=== PATIENT | male | born 1975 | race Two or more races ===

== ENCOUNTER 2017-08-08 09:40 | Emergency (ER) | payer MEDICAID ==
[2017-08-08 09:54] VITALS: BP 153/89
--- NOTE | 2017-08-08 10:09 | EDM.PDOC ---
ED HPI GENERAL MEDICAL PROBLEM - General Chief Complaint: ENT Problem Stated Complaint: [id number] PAIN FACE NUMBNESS Time Seen by Provider: 08/08/17 09:40 Source of Information: Reports: Patient, RN, RN Notes Reviewed History Limitations: Reports: No Limitations - History of Present Illness INITIAL COMMENTS - FREE TEXT/NARRATIVE: [place] is a 42 yo male who presents today due to pain in his left lower jaw. He relates that he broke a tooth two days ago and has had pain and swelling to his jaw since. He reports sensitivity to hot and cold liquids. Denies fever/ chills at home. He reports that he tried to get into a dentist but was unable to. Onset Date: 08/06/17 Quality: Reports: Ache, Sharp Severity: Severe Improves with: Reports: Medication (Has taken advil and tylenol with minimal relief. ) Associated Symptoms: Reports: No Other Symptoms Left Lower Feet Pain Score (Numeric/FACES): 8 - Related Data Allergies Allergy/AdvReac Type Severity Reaction Status Date / Time Unable to Assess Allergy Unverified 01/31/15 08:36 Home Meds: Home Meds . [No Known Home Meds] 08/08/17 [History] Past Medical History - Past Surgical History GI Surgical History: Reports: Appendectomy, Colon Social & Family History - Tobacco Use Smoking Status *Q: Current Status Unknown - Recreational Drug Use Recreational Drug Use: No ED ROS ENT - Review of Systems Review Of Systems: ROS reveals no pertinent complaints other than HPI. ED EXAM, ENT - Physical Exam Exam: See Below Exam Limited By: No Limitations General Appearance: Alert, WD/WN, No Apparent Distress Eye Exam: Bilateral Eye: PERRL Ears: Normal External Exam, Normal Canal, Hearing Grossly Normal, Normal TMs Nose: Normal Inspection, Normal Mucousa, No Blood Mouth/Throat: Normal Lips, Normal Oropharynx, Dental Abcess (Patient has broken tooth to left lower jaw swelling is present. ), Dental Pain Head: Atraumatic, Facial Swelling (To left lower jaw) Neck: Normal Inspection, Supple, Non-Tender, Full Range of Motion Respiratory/Chest: No Respiratory Distress, Lungs Clear, Normal Breath Sounds, No Accessory Muscle Use, Chest Non-Tender Cardiovascular: Normal Peripheral Pulses, Regular Rate, Rhythm, No Edema, No Gallop, No JVD, No Murmur, No Rub GI/Abdominal: Normal Bowel Sounds, Soft, Non-Tender, No Organomegaly, No Distention, No Abnormal Bruit, No Mass (Male) Exam: Deferred Rectal (Males) Exam: Deferred Back: Normal Inspection, Full Range of Motion Extremities: Normal Inspection, Normal Range of Motion, Non-Tender, No Pedal Edema, Normal Capillary Refill Neurological: Alert, Oriented, CN II-XII Intact, Normal Cognition, Normal Gait, Normal Reflexes, No Motor/Sensory Deficits Psychiatric: Normal Affect, Normal Mood Skin: Warm, Dry, Intact, Normal Color, No Rash Lymphatic: No Adenopathy ED ENT PROCEDURES - Additional/Other Procedure(s) Other (Free Text) Procedure(s): Dental block to left lower tooth #21 with Bupivican. Topical analgesic applied prior injection. Course - Vital Signs Last Recorded V/S: Last Vital Signs Temp 37.0 C 08/08/17 09:53 Pulse 88 08/08/17 09:53 Resp 16 08/08/17 09:53 BP 153/89 H 08/08/17 09:53 Pulse Ox 98 08/08/17 09:53 - Orders/Labs/Meds Meds: Medications Discontinued Medications Generic Name Dose Route Start Last Admin Trade Name Venuq PRN Reason Stop Dose Admin Lidocaine HCl 20 ml 08/08/17 10:22 Xylocaine 2% Viscous PO 08/08/17 10:23 ONETIME ONE Lidocaine HCl 15 ml 08/08/17 10:27 08/08/17 10:31 Xylocaine 2% Viscous PO 08/08/17 10:28 15 ml ONETIME ONE Administration Oxycodone/Acetaminophen 1 tab 08/08/17 10:22 08/08/17 10:29 Percocet 325-5 Mg PO 08/08/17 10:23 1 tab ONETIME ONE Administration Departure - Departure Time of Disposition: 10:29 Disposition: Home, Self-Care 01 Clinical Impression: Dental abscess, Infected dental carries - Discharge Information Instructions: Dental Abscess Forms: ED Department Discharge Care Plan Goals: Dental resources provided to patient. You need to get into dentist as soon as possible. Prescriptions for viscous lidocaine and percocet as needed for pain. Patient did receive a dose of both prior to being discharged from the ER. Prescription for clindamycin given Soft foods for now. Patient verbalizes understanding. Patient denies any further questions or concerns at this time.
[2017-08-08] MEDS ORDERED: Lidocaine 2% Viscous Solution 100 ML Bottle PO ONE (10:22)
[2017-08-08] MEDS ORDERED: Acetaminophen/oxyCODONE 325-5 MG Tab PO ONE (10:22)
[2017-08-08] MEDS ORDERED: Lidocaine 2% Viscous Solution 15 ML Cup PO ONE (10:27)
== END 2017-08-08 10:45 | disposition home or self-care (01) ==
LOC: DL.ED 09:40
DX: K04.7 Periapical abscess without sinus (principal); K02.9 Dental caries, unspecified
CPT/HCPCS: 64400; 99282; A9270